=== PATIENT | female | born 1985 | race Caucasian/White ===

== ENCOUNTER 2016-12-17 10:27 | Emergency (ER) | payer OTHER ==
[~2016-12-17] VITALS: Ht 157.5 cm; Wt 81.0 kg
[2016-12-17 10:31] VITALS: Ht 157.5 cm; Wt 81.0 kg
[2016-12-17] MEDS ORDERED: ACETAMINOPHEN 500 MG TAB PO STA (11:02)
[2016-12-17] MEDS ORDERED: PRENAT PO (11:06)
[2016-12-17] MEDS ORDERED: AMOXICILLIN 500 MG CAP PO ONE (11:30)
--- NOTE | 2016-12-17 11:35 | ERD ---
ER Documentation Chief Complaint Date/Time DATE: 12/17/16 TIME: 11:34 Chief Complaint Set from Dr James for eval Sore throat. (he wants to be Called) HPI This is a 31-year-old female who presents to the emergency room for evaluation of a sore throat. The patient states that she has had a sore throat for 2 days duration. The patient denies any trauma to the area, she does state she is 29 weeks and was told to come to the emergency room by her [employer] physician Dr. James. This patient denies any hoarseness in her voice, but does state she thinks she has a fever ROS All systems reviewed and are negative except as per history of present illness. Medications Home Meds Reported Medications Multivit/Min/Fol Ac/Iron/Pren* ( S*) 1 Tab Tab, 1 TAB PO DAILY, TAB 12/17/16 Allergies Allergies: Coded Allergies: No Known Allergy (Unverified , 12/17/16) Physical Exam Vitals Vital Signs Date Time Temp Pulse Resp B/P Pulse Ox O2 Delivery O2 Flow Rate FiO2 12/17/16 11:29 99.6 12/17/16 11:04 117 20 128/89 98 Room Air 12/17/16 10:31 102.0 128 20 127/77 98 Physical Exam INITIAL VITAL SIGNS: Reviewed by me GENERAL: The patient is well developed and appropriate for usual state of health in no apparent distress, tolerating secretions, not posturing HEENT: Pharyngeal erythema with bilateral white exudates, no peritonsillar abscess, no uvular deviation, no pharyngeal edema, pupils equal, round, and reactive to light. EOMI. There is no scleral icterus. NECK: C-spine is soft and supple, there is no meningismus. There is no cervical lymphadenopathy. LUNGS: Clear to auscultation bilaterally. There are no rales, wheezes or rhonchi. HEART: Regular rate and rhythm, no murmurs, clicks, rubs or gallops. ABDOMEN: Gravid abdomen, soft, non-tender, non-distended. There are bowel sounds in all four quadrants. No rebound or guarding. EXTREMITIES: There is no peripheral cyanosis or edema. No focal swelling or erythema. NEUROLOGICAL: The patient moves all four extremities with 5/5 strength. Cranial nerves II - XII are intact. Normal gait. Alert and oriented SKIN: There is no apparent rash or petechiae. HEME/LYMPHATIC: There is no evidence of excessive bruising or lymphedema. PSYCHIATRIC: The patient does not appear anxious or depressed. Results 24 hrs Current Medications Medications (Trade) Dose Ordered Sig/Bailey Route PRN Reason Start Time Stop Time Status Last Admin Dose Admin Acetaminophen (Tylenol Tab) 1,000 mg ONCE STAT PO 12/17/16 11:02 12/17/16 11:06 DC 12/17/16 11:06 Amoxicillin (Amoxicillin) 500 mg ONCE ONCE PO 12/17/16 11:30 12/17/16 11:31 DC 12/17/16 11:16 Procedures/MDM This 31-year-old female presents to the emergency room for evaluation of a sore throat. When I evaluated this patient she was febrile and tachycardic. I did evaluate her oropharynx and noted that she did have white visible exudate on her bilateral tonsils. The patient has no uvular deviation, she is tolerating secretions, there is no sign of peritonsillar abscess at this time. Patient was given 1 g of Tylenol and was given amoxicillin. She is tolerating her p.o. challenge at this time without difficulty. I have contacted her [employer] physician, Dr. James who states this patient is okay for discharge. I will discharge the patient home with a prescription for amoxicillin and fever control instructions. I advised her that if she were to develop any difficulty swallowing or inability to tolerate secretions she needs to return immediately to the emergency room for further evaluation and she verbalized understanding Departure Diagnosis: Primary Impression: Acute streptococcal pharyngitis Condition: Stable MONIK GRUBBS DO Dec 17, 2016 11:35
[2016-12-17] MEDS ORDERED: AMO500 PO (11:38)
[2016-12-17 11:59] VITALS: BP 112/72; PULSE 109; RESP 22; TEMP 98.2
== END 2016-12-17 12:28 | disposition home or self-care (01) ==
LOC: E/R 10:27
DX: J02.0 Streptococcal pharyngitis (principal); R40.2252 Coma scale, best verbal response, oriented, at arrival to emergency department
CPT/HCPCS: Z7610 ×3; 99283

== ENCOUNTER 2017-03-04 12:03 | Inpatient (IN) | payer OTHER ==
[~2017-03-04] VITALS: Ht 154.9 cm; Wt 96.0 kg
[~2017-03-04 12:03] MED LIST: AMO500 PO; PRENAT PO
[2017-03-09] MEDS ORDERED: LACTATED RINGER'S 1,000 ML IV PRN (17:00)
[2017-03-09 17:06] VITALS: Ht 154.9 cm; Wt 96.0 kg
[2017-03-09] MEDS: LACTATED RINGER'S 1,000 ML IV SCH ×3 (17:26→21:09)
[2017-03-09 17:29] LABS: BASOPHILS % 0.3 % (0.0-2.0); EOSINOPHILS % 0.3 % (0.0-7.0); HEMOGLOBIN 12.1 g/dl (12.0-16.0); LYMPHOCYTES # 2.2 10^3/ul (0.8-2.9); LYMPHOCYTES % 25.2 % (15.0-51.0); MEAN CORPUSCULAR HEMOGLOBIN 29.5 pg (29.0-33.0); MEAN CORPUSCULAR HGB CONC 34.6 g/dl (32.0-37.0); MEAN CORPUSCULAR VOLUME 85.4 fl (82.0-101.0); MEAN PLATELET VOLUME 9.9 fl (7.4-10.4); MONOCYTE # 0.5 10^3/ul (0.3-0.9); NEUTROPHILS % 67.7 % (39.0-77.0); PLATELET COUNT 334 10^3/UL (140-415); RED CELL DISTRIBUTION WIDTH 13.8 % (11.5-14.5); WHITE BLOOD COUNT 8.9 10^3/ul (4.8-10.8)
[2017-03-09] MEDS ORDERED: BUTORPHANOL 2 MG INJ IV PRN (17:30)
[2017-03-09] MEDS ORDERED: IBUPROFEN 600 MG TAB PO PRN (17:30)
[2017-03-09] MEDS ORDERED: METHYLERGONOVINE 0.2 MG INJ IM PRN (17:30)
[2017-03-09] MEDS ORDERED: CARBOPROST 250 MCG INJ IM PRN (17:30)
[2017-03-09] MEDS ORDERED: LIDOCAINE 1% (MPF) 30 ML INJ INJ PRN (17:30)
[2017-03-09] MEDS ORDERED: MISOPROSTOL 200 MCG TAB PR PRN (17:30)
[2017-03-09] MEDS ORDERED: OXYTOCIN 30 UNITS/LR 500 ML IV SCH ×3 (17:30)
[2017-03-09] MEDS ORDERED: OXYTOCIN 30 UNITS/LR 500 ML IV PRN (17:30)
[2017-03-09 17:47] LABS: INR 0.91; PARTIAL THROMBOPLASTIN TIME 28.6 Sec (25.0-35.0); PROTIME 12.2 Sec (12.2-14.2)
[2017-03-09 17:58] LABS: ALANINE AMINOTRANSFERASE 25 IU/L (13-69); ALBUMIN 3.7 g/dl (3.3-4.9); ALBUMIN/GLOBULIN RATIO 0.97; ALKALINE PHOSPHATASE 219 IU/L (42-121); ANION GAP 15 (8-16); ASPARTATE AMINO TRANSFERASE 21 IU/L (15-46); BILIRUBIN,INDIRECT 0.1 mg/dl (0-1.1); BILIRUBIN,TOTAL 0.1 mg/dl (0.2-1.3); BLOOD UREA NITROGEN 10 mg/dl (7-20); CALCIUM 9.4 mg/dl (8.4-10.2); CARBON DIOXIDE 21 mmol/L (21-31); CHLORIDE 107 mmol/L (97-110); CREATININE 0.58 mg/dl (0.44-1.00); GLUCOSE 105 mg/dl (70-220); POTASSIUM 4.3 mmol/L (3.5-5.1); SODIUM 139 mmol/L (135-144); TOTAL PROTEIN 7.5 g/dl (6.1-8.1)
--- NOTE | 2017-03-09 19:38 | RADRPT ---
PROCEDURE: US OB. CLINICAL INDICATION: Post dates. Macrosomia.. TECHNIQUE: Multiple sonographic images of the pelvis were obtained. Transabdominal imaging only w as performed. The images were reviewed on a PACS workstation. COMPARISON: None. FINDINGS: Single live intrauterine is identified. Cardiac activity is present with 125 beats per mi nute. There is a vertex presentation and low-lying. Measurements: BPD = 40 weeks 0 days. HC = 40 weeks 0 days. AC = 40 weeks 2 days. FL = 40 weeks 0 days. Estimated gestational age of approximately 40 weeks 1 day. The EFW = 4006 g which is at the 71st percentile. The placenta is fundal. IMPRESSION: Single live intrauterine gestation of approximately 40 weeks 1 day. weight is 8 pounds 13 oun aldair which is at the 71st percentile. RPTAT: HMVK .Christopher Ku MD, Date Time Electronically viewed and signed by .Christopher Ku MD, on 03/09/2017 19:37 .K/
[2017-03-09 19:48] LABS: ADD UMIC YES; UR ASCORBIC ACID NEGATIVE (NEGATIVE); UR BILIRUBIN (Dip) NEGATIVE (NEGATIVE); UR BLOOD (Dip) 3+ mg/dL (NEGATIVE); UR CLARITY CLOUDY (CLEAR); UR COLOR YELLOW (YELLOW); UR GLUCOSE (Dip) NEGATIVE (NEGATIVE); UR KETONES (Dip) NEGATIVE (NEGATIVE); UR LEUKOCYTE ESTERASE (Dip) 2+ Leu/ul (NEGATIVE); UR NITRITE (Dip) NEGATIVE (NEGATIVE); UR RBC 67 /HPF (0-5); UR SPECIFIC GRAVITY (Dip) 1.012 (1.003-1.030); UR SQUAMOUS EPITHELIAL CELL FEW /HPF (FEW); UR TOTAL PROTEIN (Dip) NEGATIVE (NEGATIVE); UR UROBILINOGEN (Dip) NEGATIVE (NEGATIVE)
[2017-03-10] MEDS ORDERED: ONDANSETRON 4 MG INJ ONE (01:22)
[2017-03-10] MEDS ORDERED: CITRIC ACID/NA CITRATE 30 ML CUP ONE (01:22)
[2017-03-10] MEDS ORDERED: LACTATED RINGER'S 1,000 ML IV ONE (01:33)
[2017-03-10] MEDS ORDERED: FENTAnyl 2MCG/ML-ROPIV 0.2% 100 ML ONE (01:39)
[2017-03-10] MEDS ORDERED: DIPHENHYDRAMINE 50 MG INJ IV PRN (02:00)
[2017-03-10] MEDS ORDERED: NALOXONE (0.4 MG/ML) INJ IV PRN (02:00)
[2017-03-10] MEDS ORDERED: TRIMETHOBENZAMIDE 100 MG/ML VIAL IM PRN (02:00)
[2017-03-10] MEDS ORDERED: ONDANSETRON 4 MG INJ IV ONE (02:00)
[2017-03-10] MEDS ORDERED: morphine 2 MG INJ IV PRN (02:00)
[2017-03-10] MEDS ORDERED: NALBUPHINE HCL (10 MG/1 ML) INJ IV PRN (02:00)
[2017-03-10] MEDS ORDERED: FENTAnyl 2MCG/ML-ROPIV 0.2% 100 ML BAG EPI SCH (02:00)
[2017-03-10] MEDS ORDERED: CITRIC ACID/NA CITRATE 30 ML CUP PO ONE (02:00)
[2017-03-10] MEDS ORDERED: ONDANSETRON 4 MG INJ IV PRN (02:00)
[2017-03-10] MEDS: LACTATED RINGER'S 1,000 ML IV SCH (04:32)
[2017-03-10] MEDS ORDERED: CEFAZOLIN 2 GM/50 ML (PMX) 50 ML IVPB ONE (10:30)
[2017-03-10] MEDS ORDERED: LIDOCAINE 2%/EPI 30 ML INJ ONE (11:05)
[2017-03-10] MEDS ORDERED: PHENYLephrine (100 MCG/ML) 5ML SYG ONE ×2 (11:14→11:53)
[2017-03-10] MEDS ORDERED: morphine SULFATE/PF (10 MG/10 ML) INJ ONE (11:33)
[2017-03-10] MEDS ORDERED: FENTAnyl 50 MCG/ML VIAL ONE (11:36)
--- NOTE | 2017-03-10 13:20 | OPR ---
Operative Report Planned Procedure Free Text/Dictation 31 years old female 1 para 0 EDC March 04, 2070 was admitted for induction of labor. had several category 3 heart tracing with decelerations up to 3-4 minutes to failed induction not anticipating timely delivery with the frequency of deceleration plan of discussed with the patient be prepared for urgent section Procedure date Mar 10, 2017 Procedure(s) Primary Performed by: RAMONITA JENKINS MD Assisting provider: CECELIA TEE MD Anesthesiologist: HEIDI KIM Pre-procedure diagnosis Prostate 41 week failed induction category 3 heart tracing Anesthesia Type: epidural Procedure Description Under satisfactory [] anesthesia, the patient was prepped and draped and placed in a supine position, tilted to the left. Pfannenstiel incision was made, carried through the subcutaneous tissue. Bleeders brought under control with electrocautery. Fascia incised to the length of the incision. Rectus muscles from the fascia, divided midline. Peritoneum exposed, entered through a transverse incision. Exploration of abdomen revealed gravid uterus. Normal- appearing tubes and ovaries evidence of labor ,bladder flap was developed. Transverse incision was made in the lower segment of the uterus. Amniotic sac ruptured. [] amniotic fluid noted. Live baby boy was delivered from occiput posterior [] Nasal oropharyngeal suction was performed. The baby was handed to the team for immediate attention. placenta delivered manually intact. Uterine cavity sparkle cleaned with wet sponge and drainage established. Uterus closed in 2 layers using Vicryl No. 1 [] in continuous fashion. Peritoneal cavity irrigated with warm saline. Sponge, needle and instrument count reported to be correct. Abdominal peritoneum closed with [0 chromic cat continuously. Rectus muscle approximated with 0 chromic catgut []. Fascia closed with #1 PDS1, subcutaneous tissue approximated with interrupted 2-0 chromic catgut skin closed with Sorber. Estimated blood loss [600]m. Urine bag contained [200]mL of clear urine patient tolerated procedure well transferred to recovery room in good condition Post-Procedure Findings: Live Baby boy Apgars 9 and 9 Specimen removed: No Complications: None Pt Condition post procedure: stable Disposition: other (Recovery room) Physician Certification I, the undersigned physician, hereby certify that I have discussed the procedure described in this consent form with this patient (or the patient's legal operations support representative), including: * The risk and benefits of the procedure; * Any adverse reactions that may reasonably be expected to occur; * Any alternative efficacious methods of treatment which may be medically viable ; * The potential problems that may occur during recuperation; * Potential for blood transfusion and associated risks/benefits; and * Any research or economic interest I may have regarding this treatment. I further certify that the patient/legally responsible person was encouraged to ask question and that all questions were answered. RAMONITA JENKINS MD Mar 10, 2017 13:18
--- NOTE | 2017-03-10 13:25 | HP ---
Date/Time of Note Date/Time of Note DATE: 03/10/17 TIME: 13:20 OB - History Hx of Present Free Text/Dictation 31 years old female EDC March 04, 2017 admitted for induction of labor during the course of induction developed several occasions of category 3 heart tracing with deceleration up to 3 and 4 minute since not anticipating a timely delivery and failed and the presence of category 3 total heart rate alternative route of delivery by section discussed with the patient she elected to proceed the delivery Chief Complaint: 41 weeks failed induction, grade 3 heart tracing Estimated Due Date: Mar 04, 2017 : 1 Para: 0 Care: Good Care Ultrasounds: Normal mid trimester US Obstetrical Complications: None Medical Complications: None Past Family/Social History * Past Medical, Surgical, Family and Obstetric Histories reviewed from chart. Rubella: immune RPR/VDRL: Negative GBS Status: Negative HBsAG: Negative OB Admission Exam Physical Exam HEENT: WNL Heart: Rhythm Normal Lungs: Clear, Equal Abdomen: WNL Extremities: Normal Cervical Dilatation: 9cm Effacement: 100% Station: -1 Membranes: Ruptured Amniotic Fluid: Clear Heart Rate: 130's Decelerations: Variable Decelerations Contractions on Admission: < 5 Minutes Apart Intensity: Firm Last 72 hours Lab Results CBC & BMP 03/09/17 17:00 Liver Function Test 03/09/17 17:00 Alanine Aminotransferase (ALT/SGPT) 25 Albumin 3.7 Alkaline Phosphatase 219 H Aspartate Amino Transf (AST/SGOT) 21 Direct Bilirubin 0.00 Total Protein 7.5 RAMONITA JENKINS MD Mar 10, 2017 13:25
[2017-03-10] MEDS: KETOROLAC 30 MG INJ IV PRN ×2 (13:57→21:58)
[2017-03-10 16:00] VITALS: BP 121/53; PULSE 102; RESP 17
[2017-03-10] MEDS ORDERED: MISOPROSTOL 200 MCG TAB PR PRN (16:00)
[2017-03-10] MEDS ORDERED: CEFAZOLIN 1 GM/50 ML (PMX) 50 ML IVPB SCH (16:00)
[2017-03-10] MEDS ORDERED: CARBOPROST 250 MCG INJ IM PRN (16:00)
[2017-03-10] MEDS ORDERED: HYDROCODONE/APAP (5/325) TAB PO PRN (16:00)
[2017-03-10] MEDS ORDERED: METHYLERGONOVINE 0.2 MG INJ IM PRN (16:00)
[2017-03-10] MEDS ORDERED: OXYCODONE/ACETAMINOPHEN (5/325) TAB PO PRN (16:00)
[2017-03-10] MEDS ORDERED: LANOLIN 7 GM TUBE TOP PRN (16:00)
[2017-03-10] MEDS ORDERED: OXYTOCIN 30 UNITS/LR 500 ML IV PRN (16:00)
[2017-03-10] MEDS: OXYTOCIN 30 UNITS/LR 500 ML IV SCH ×2 (17:11→21:53)
[2017-03-10 20:00] VITALS: BP 107/53; PULSE 99; RESP 18
[2017-03-11] VITALS: BP 129/60; PULSE 88; RESP 18
[2017-03-11] MEDS: LACTATED RINGER'S 1,000 ML IV SCH ×2 (01:53→09:43)
[2017-03-11 04:00] VITALS: BP 110/59; PULSE 96; RESP 18
[2017-03-11] MEDS: KETOROLAC 30 MG INJ IV PRN ×2 (05:28→11:18)
[2017-03-11 08:00] VITALS: BP 120/58; PULSE 94; RESP 16
--- NOTE | 2017-03-11 08:45 | CONS ---
Date/Time of Note Date/Time of Note DATE: 03/11/17 TIME: 08:43 Consultation Date/Type/Reason Admit Date/Time Mar 09, 2017 at 16:29 Initial Consult Date 03/10/17 Type of Consultation: Anesthesiology Reason for Consultation Follow up 24 HR Interval Summary Free Text/Dictation Pt seen and examined at bedside is POD#1 for primary emergency c/s for Cat 3 tracing. Pt received Duramorph in her epidural for post op pain control. She states she is doing well with minimal pain. No N/V/D/C/BHAKTA/Numbness in extremities. Will follow. Constitutional: improved, no complaints Exam/Review of Systems Vital Signs Vitals Vital Signs Date Time Temp Pulse Resp B/P Pulse Ox O2 Delivery O2 Flow Rate FiO2 03/11/17 04:00 98.2 96 18 110/59 Room Air Intake and Output 03/10/17 03/10/17 03/11/17 14:59 22:59 06:59 Intake Total 1634 ml 725 ml 1125 ml Output Total 1800 ml 700 ml 1350 ml Balance -166 ml 25 ml -225 ml Results Result Diagram: 03/09/17 1700 03/09/17 1700 Medications Medications Current Medications Naloxone HCl (Narcan) 0.1 mg Q2M PRN IV FOR RESP RATE 8 OR LESS; Start 03/10/17 at 02:00; Stop 03/11/17 at 11:33 Ketorolac Tromethamine (Toradol) 30 mg Q6H PRN IV PAIN Last administered on 03/11t 05:28; Admin Dose 30 MG; Start 03/10/17 at 02:00; Stop 03/11/17 at 11:33 Morphine Sulfate (morphine) 2 mg Q3H PRN IV PAIN LEVEL 1-5; Start 03/10/17 at 02 :00; Stop 03/11/17 at 11:33 Diphenhydramine HCl (Benadryl) 25 mg Q6H PRN IV ITCHING; Start 03/10/17 at 02:00 ; Stop 03/11/17 at 11:33 Nalbuphine HCl (Nubain) 5 mg ONCE PRN IV ITCHING; Start 03/10/17 at 02:00; Stop 03/11/17 at 11:33 Ondansetron HCl (Zofran Inj) 4 mg Q6H PRN IV NAUSEA AND/OR VOMITING; Start 03/10 at 02:00; Stop 03/11/17 at 11:33 Trimethobenzamide HCl (Tigan) 200 mg Q6H PRN IM NAUSEA AND/OR VOMITING; Start 03/10/17 at 02:00; Stop 03/11/17 at 11:33 Acetaminophen/ Hydrocodone Bitart ([place] (5/325)) 1 tab Q4H PRN PO PAIN LEVEL 4 -6; Start 03/10/17 at 16:00 Acetaminophen/ Hydrocodone Bitart ([place] (5/325)) 2 tab Q4H PRN PO PAIN LEVEL 7 -10; Start 03/10/17 at 16:00 Oxycodone/ Acetaminophen (Percocet (5/ 325)) 1 tab Q4H PRN PO PAIN LEVEL 4-6; Start 03/10/17 at 16:00 Oxycodone/ Acetaminophen (Percocet (5/ 325)) 2 tab Q4H PRN PO PAIN LEVEL 7-10; Start 03/10/17 at 16:00 Ibuprofen (Motrin) 600 mg Q6 PO ; Start 03/11/17 at 12:00 Simethicone (Mylicon) 160 mg Q8H PRN PO DISTENSION/GAS/BLOATING; Start 03/10/17 at 16:00 Senna/Docusate Sodium (Senokot-S) 1 tab BID PO ; Start 03/11/17 at 09:00 Diphtheria/ Tetanus/Acell Pertussis 0.5 ml 0.5 ml ONCE ONCE IM* ; Start 03/13/17 at 09:00; Stop 03/13/17 at 09:01 Oxytocin/Lactated Ringer's 500 ml @ 0 mls/hr ONCE PRN IV For Hemorrhage Management; Start 03/10/17 at 16:00 Methylergonovine Maleate (Methergine) 0.2 mg ONCE PRN IM VAGINAL BLEEDING; Start 03/10/17 at 16:00 Carboprost Tromethamine (Hemabate) 250 mcg ONCE PRN IM VAGINAL BLEEDING; Start 03/10/17 at 16:00 Misoprostol 1000 mcg 1,[address] VAGINAL BLEEDING; Start 03/10/17 at 16 :00 Lactated Ringer's (Lr) 1,000 ml @ 125 mls/hr Q8H IV Last administered on t 01:53; Admin Dose 125 MLS/HR; Start 03/11/17 at 00:00; Stop 03/11/17 at 12:00 HEIDI KIM Mar 11, 2017 08:45
[2017-03-11 09:11] LABS: BASOPHILS % 0.2 % (0.0-2.0); EOSINOPHILS % 0.2 % (0.0-7.0); HEMATOCRIT 26.9 % (37.0-47.0); HEMOGLOBIN 8.9 g/dl (12.0-16.0); LYMPHOCYTES # 1.9 10^3/ul (0.8-2.9); MEAN CORPUSCULAR HEMOGLOBIN 28.7 pg (29.0-33.0); MEAN CORPUSCULAR HGB CONC 33.1 g/dl (32.0-37.0); MEAN CORPUSCULAR VOLUME 86.8 fl (82.0-101.0); MEAN PLATELET VOLUME 9.8 fl (7.4-10.4); MONOCYTE # 0.5 10^3/ul (0.3-0.9); MONOCYTES % 4.6 % (0.0-11.0); NEUTROPHILS % 75.7 % (39.0-77.0); PLATELET COUNT 262 10^3/UL (140-415); RED CELL DISTRIBUTION WIDTH 14.4 % (11.5-14.5); WHITE BLOOD COUNT 9.9 10^3/ul (4.8-10.8)
[2017-03-11] MEDS: SENNA/DOCUSATE NA (8.6MG/50MG) TAB PO SCH ×2 (09:42→20:39)
--- NOTE | 2017-03-11 10:32 | PN ---
Date/Time of Note Date/Time of Note DATE: 03/11/17 TIME: 10:30 OB Subjective Subjective Subjective March 11, 2017 Post day 1 Doing Well Afebrile Ambulatory Chest Clear Breasts are soft , Nipples are intact Abdomen is soft Fundus is firm Moderate amount of lochia Incision is clean ,No evidence of infection No calf tenderness No ankle edema Laboratory Tests Test 03/11/17 08:46 White Blood Count 9.910^3/ul Red Blood Count 3.1010^6/ul Hemoglobin 8.9g/dl Hematocrit 26.9% Mean Corpuscular Volume 86.8fl Mean Corpuscular Hemoglobin 28.7pg Mean Corpuscular Hemoglobin Concent 33.1g/dl Red Cell Distribution Width 14.4% Platelet Count 99768^3/UL Mean Platelet Volume 9.8fl Neutrophils % 75.7% Lymphocytes % 19.0% Monocytes % 4.6% Eosinophils % 0.2% Basophils % 0.2% Nucleated Red Blood Cells % 0.0/100WBC Neutrophils # (Manual) 7.510^3/ul Lymphocytes # 1.910^3/ul Monocytes # 0.510^3/ul Eosinophils # 0.010^3/ul Basophils # 0.010^3/ul Nucleated Red Blood Cells # 0.010^3/ul Current Medications Medications (Trade) Dose Ordered Sig/Bailey Route PRN Reason Start Time Stop Time Status Last Admin Dose Admin Lactated Ringer's (Lr) 1,000 ml @ 125 mls/hr Q8H IV 03/09/17 17:07 03/10/17 16:04 DC 03/10/17 04:32 Butorphanol Tartrate (Stadol) 2 mg Q2H PRN IV PAIN 03/09/17 17:30 03/10/17 16:04 DC 03/09/17 23:27 Lidocaine 30 ml 30 ml ONCE PRN INJ EPISIOTOMY/TEARING 03/09/17 17:30 03/10/17 16:04 DC Oxytocin/Lactated Ringer's 500 ml @ 125 mls/hr ONCE -MAY REPEAT X1 IV 03/09/17 17:30 03/10/17 16:04 DC 03/10/17 12:54 Oxytocin/Lactated Ringer's 500 ml @ 125 mls/hr ONCE IV 03/09/17 17:30 03/10/17 16:04 DC 03/10/17 13:02 Ibuprofen 600 mg 600 mg ONCE PRN PO Mild Pain (Pain Score 1-3) 03/09/17 17:30 03/10/17 16:04 DC Lactated Ringer's 1,000 ml @ 2,000 mls/hr Q30M PRN IV PRE-EPIDURAL BOLUS 03/09/17 17:00 03/10/17 16:04 DC 03/10/17 01:26 Oxytocin/Lactated Ringer's 500 ml @ 0 mls/hr ONCE PRN IV For Hemorrhage Management 03/09/17 17:30 03/10/17 16:04 DC Methylergonovine Maleate (Methergine) 0.2 mg ONCE PRN IM VAGINAL BLEEDING 03/09/17 17:30 03/10/17 16:04 DC Carboprost Tromethamine (Hemabate) 250 mcg ONCE PRN IM VAGINAL BLEEDING 03/09/17 17:30 03/10/17 16:04 DC Misoprostol 1000 mcg 1,000 mcg ONCE PRN [place] VAGINAL BLEEDING 03/09/17 17:30 03/10/17 16:04 DC Oxytocin/Lactated Ringer's 500 ml @ 0 mls/hr TITRATE IV 03/09/17 17:30 03/10/17 16:04 DC 03/09/17 18:10 Citric Acid/ Sodium Citrate (Bicitra) 30 ml STK-MED ONCE .ROUTE 03/10/17 01:22 03/10/17 01:23 DC Ondansetron HCl (Zofran Inj) 4 mg STK-MED ONCE .ROUTE 03/10/17 01:22 03/10/17 01:23 DC Naloxone HCl (Narcan) 0.1 mg Q2M PRN IV FOR RESP RATE 8 OR LESS 03/10/17 02:00 03/11/17 11:33 Ketorolac Tromethamine (Toradol) 30 mg Q6H PRN IV PAIN 03/10/17 02:00 03/11/17 11:33 03/11/17 05:28 Morphine Sulfate (morphine) 2 mg Q3H PRN IV PAIN LEVEL 1-5 03/10/17 02:00 03/11/17 11:33 Diphenhydramine HCl (Benadryl) 25 mg Q6H PRN IV ITCHING 03/10/17 02:00 03/11/17 11:33 Nalbuphine HCl (Nubain) 5 mg ONCE PRN IV ITCHING 03/10/17 02:00 03/11/17 11:33 Ondansetron HCl (Zofran Inj) 4 mg Q6H PRN IV NAUSEA AND/OR VOMITING 03/10/17 02:00 03/11/17 11:33 Trimethobenzamide HCl (Tigan) 200 mg Q6H PRN IM NAUSEA AND/OR VOMITING 03/10/17 02:00 03/11/17 11:33 Fentanyl/ Ropivacaine 100 ml 100 ml EPIDURAL INFUSION EPI 03/10/17 02:00 03/10/17 16:04 DC 03/10/17 09:38 Lactated Ringer's (Lr) 1,000 ml @ 1,000 mls/hr Q1H ONCE IV 03/10/17 01:33 03/10/17 02:32 DC 03/10/17 10:40 Ondansetron HCl (Zofran Inj) 4 mg pre-procedure ONCE IV 03/10/17 02:00 03/10/17 02:01 DC Citric Acid/ Sodium Citrate 30 ml 30 ml PRE-OP ONCE PO 03/10/17 02:00 03/10/17 02:01 DC Fentanyl/ Ropivacaine 100 ml @ ud STK-MED ONCE .ROUTE 03/10/17 01:39 03/10/17 01:40 DC Cefazolin Sodium/ Dextrose (Ancef 2 Gm/50 ml (Pmx)) 50 ml @ 100 mls/hr ONCE ONCE IVPB 03/10/17 10:30 03/10/17 10:59 DC Lidocaine/ Epinephrine (Xylocaine 2%/ Epi) 30 ml STK-MED ONCE .ROUTE 03/10/17 11:05 03/10/17 11:06 DC Phenylephrine HCl ([place]-Synephrine Inj Syg) 500 mcg STK-MED ONCE .ROUTE 03/10/17 11:14 03/10/17 11:15 DC Morphine Sulfate (Duramorph) 10 mg STK-MED ONCE .ROUTE 03/10/17 11:33 03/10/17 11:34 DC Fentanyl (Sublimaze) 100 mcg STK-MED ONCE .ROUTE 03/10/17 11:36 03/10/17 11:37 DC Phenylephrine HCl ([place]-Synephrine Inj Syg) 500 mcg STK-MED ONCE .ROUTE 03/10/17 11:53 03/10/17 11:54 DC Acetaminophen/ Hydrocodone Bitart ([place] (5/325)) 1 tab Q4H PRN PO PAIN LEVEL 4-6 03/10/17 16:00 Acetaminophen/ Hydrocodone Bitart ([place] (5/325)) 2 tab Q4H PRN PO PAIN LEVEL 7-10 03/10/17 16:00 Oxycodone/ Acetaminophen (Percocet (5/ 325)) 1 tab Q4H PRN PO PAIN LEVEL 4-6 03/10/17 16:00 Oxycodone/ Acetaminophen (Percocet (5/ 325)) 2 tab Q4H PRN PO PAIN LEVEL 7-10 03/10/17 16:00 Ibuprofen (Motrin) 600 mg Q6 PO 03/11/17 12:00 Simethicone (Mylicon) 160 mg Q8H PRN PO DISTENSION/GAS/BLOATING 03/10/17 16:00 Senna/Docusate Sodium (Senokot-S) 1 tab BID PO 03/11/17 09:00 03/11/17 09:42 Lanolin (Hgg-E-Lxcrfr) 1 applic BEDSIDE MEDICATION PRN TOP BEDSIDE FOR DALE TO NIPPLES 03/10/17 16:00 Diphtheria/ Tetanus/Acell Pertussis 0.5 ml 0.5 ml ONCE ONCE IM* 03/13/17 09:00 03/13/17 09:01 Oxytocin/Lactated Ringer's 500 ml @ 0 mls/hr ONCE PRN IV For Hemorrhage Management 03/10/17 16:00 Methylergonovine Maleate (Methergine) 0.2 mg ONCE PRN IM VAGINAL BLEEDING 03/10/17 16:00 Carboprost Tromethamine (Hemabate) 250 mcg ONCE PRN IM VAGINAL BLEEDING 03/10/17 16:00 Misoprostol 1000 mcg 1,000 mcg ONCE PRN [place] VAGINAL BLEEDING 03/10/17 16:00 Cefazolin Sodium 50 ml @ 100 mls/hr ONCE IVPB 03/10/17 16:00 03/10/17 16:29 DC 03/10/17 17:10 Oxytocin/Lactated Ringer's 500 ml @ 125 mls/hr Q4H IV 03/10/17 15:57 03/11/17 07:53 DC 03/10/17 21:53 Lactated Ringer's (Lr) 1,000 ml @ 125 mls/hr Q8H IV 03/11/17 00:00 03/11/17 12:00 03/11/17 09:43 New born is doing well, Breast feeding JESSICA FERRERA MD Mar 11, 2017 10:32
--- NOTE | 2017-03-11 10:37 | PN ---
Date/Time of Note Date/Time of Note DATE: 03/11/17 TIME: 10:36 OB Subjective Subjective Subjective March 11, 2017 Post C section day 2 Doing Well Afebrile Ambulatory Chest Clear Breasts are soft , Nipples are intact Abdomen is soft Fundus is firm Moderate amount of lochia Incision is clean ,No evidence of infection No calf tenderness No ankle edema Laboratory Tests Test 03/11/17 08:46 White Blood Count 9.910^3/ul Red Blood Count 3.1010^6/ul Hemoglobin 8.9g/dl Hematocrit 26.9% Mean Corpuscular Volume 86.8fl Mean Corpuscular Hemoglobin 28.7pg Mean Corpuscular Hemoglobin Concent 33.1g/dl Red Cell Distribution Width 14.4% Platelet Count 68921^3/UL Mean Platelet Volume 9.8fl Neutrophils % 75.7% Lymphocytes % 19.0% Monocytes % 4.6% Eosinophils % 0.2% Basophils % 0.2% Nucleated Red Blood Cells % 0.0/100WBC Neutrophils # (Manual) 7.510^3/ul Lymphocytes # 1.910^3/ul Monocytes # 0.510^3/ul Eosinophils # 0.010^3/ul Basophils # 0.010^3/ul Nucleated Red Blood Cells # 0.010^3/ul Current Medications Medications (Trade) Dose Ordered Sig/Bailey Route PRN Reason Start Time Stop Time Status Last Admin Dose Admin Lactated Ringer's (Lr) 1,000 ml @ 125 mls/hr Q8H IV 03/09/17 17:07 03/10/17 16:04 DC 03/10/17 04:32 Butorphanol Tartrate (Stadol) 2 mg Q2H PRN IV PAIN 03/09/17 17:30 03/10/17 16:04 DC 03/09/17 23:27 Lidocaine 30 ml 30 ml ONCE PRN INJ EPISIOTOMY/TEARING 03/09/17 17:30 03/10/17 16:04 DC Oxytocin/Lactated Ringer's 500 ml @ 125 mls/hr ONCE -MAY REPEAT X1 IV 03/09/17 17:30 03/10/17 16:04 DC 03/10/17 12:54 Oxytocin/Lactated Ringer's 500 ml @ 125 mls/hr ONCE IV 03/09/17 17:30 03/10/17 16:04 DC 03/10/17 13:02 Ibuprofen 600 mg 600 mg ONCE PRN PO Mild Pain (Pain Score 1-3) 03/09/17 17:30 03/10/17 16:04 DC Lactated Ringer's 1,000 ml @ 2,000 mls/hr Q30M PRN IV PRE-EPIDURAL BOLUS 03/09/17 17:00 03/10/17 16:04 DC 03/10/17 01:26 Oxytocin/Lactated Ringer's 500 ml @ 0 mls/hr ONCE PRN IV For Hemorrhage Management 03/09/17 17:30 03/10/17 16:04 DC Methylergonovine Maleate (Methergine) 0.2 mg ONCE PRN IM VAGINAL BLEEDING 03/09/17 17:30 03/10/17 16:04 DC Carboprost Tromethamine (Hemabate) 250 mcg ONCE PRN IM VAGINAL BLEEDING 03/09/17 17:30 03/10/17 16:04 DC Misoprostol 1000 mcg 1,000 mcg ONCE PRN [place] VAGINAL BLEEDING 03/09/17 17:30 03/10/17 16:04 DC Oxytocin/Lactated Ringer's 500 ml @ 0 mls/hr TITRATE IV 03/09/17 17:30 03/10/17 16:04 DC 03/09/17 18:10 Citric Acid/ Sodium Citrate (Bicitra) 30 ml STK-MED ONCE .ROUTE 03/10/17 01:22 03/10/17 01:23 DC Ondansetron HCl (Zofran Inj) 4 mg STK-MED ONCE .ROUTE 03/10/17 01:22 03/10/17 01:23 DC Naloxone HCl (Narcan) 0.1 mg Q2M PRN IV FOR RESP RATE 8 OR LESS 03/10/17 02:00 03/11/17 11:33 Ketorolac Tromethamine (Toradol) 30 mg Q6H PRN IV PAIN 03/10/17 02:00 03/11/17 11:33 03/11/17 05:28 Morphine Sulfate (morphine) 2 mg Q3H PRN IV PAIN LEVEL 1-5 03/10/17 02:00 03/11/17 11:33 Diphenhydramine HCl (Benadryl) 25 mg Q6H PRN IV ITCHING 03/10/17 02:00 03/11/17 11:33 Nalbuphine HCl (Nubain) 5 mg ONCE PRN IV ITCHING 03/10/17 02:00 03/11/17 11:33 Ondansetron HCl (Zofran Inj) 4 mg Q6H PRN IV NAUSEA AND/OR VOMITING 03/10/17 02:00 03/11/17 11:33 Trimethobenzamide HCl (Tigan) 200 mg Q6H PRN IM NAUSEA AND/OR VOMITING 03/10/17 02:00 03/11/17 11:33 Fentanyl/ Ropivacaine 100 ml 100 ml EPIDURAL INFUSION EPI 03/10/17 02:00 03/10/17 16:04 DC 03/10/17 09:38 Lactated Ringer's (Lr) 1,000 ml @ 1,000 mls/hr Q1H ONCE IV 03/10/17 01:33 03/10/17 02:32 DC 03/10/17 10:40 Ondansetron HCl (Zofran Inj) 4 mg pre-procedure ONCE IV 03/10/17 02:00 03/10/17 02:01 DC Citric Acid/ Sodium Citrate 30 ml 30 ml PRE-OP ONCE PO 03/10/17 02:00 03/10/17 02:01 DC Fentanyl/ Ropivacaine 100 ml @ ud STK-MED ONCE .ROUTE 03/10/17 01:39 03/10/17 01:40 DC Cefazolin Sodium/ Dextrose (Ancef 2 Gm/50 ml (Pmx)) 50 ml @ 100 mls/hr ONCE ONCE IVPB 03/10/17 10:30 03/10/17 10:59 DC Lidocaine/ Epinephrine (Xylocaine 2%/ Epi) 30 ml STK-MED ONCE .ROUTE 03/10/17 11:05 03/10/17 11:06 DC Phenylephrine HCl (Haroon-Synephrine Inj Syg) 500 mcg STK-MED ONCE .ROUTE 03/10/17 11:14 03/10/17 11:15 DC Morphine Sulfate (Duramorph) 10 mg STK-MED ONCE .ROUTE 03/10/17 11:33 03/10/17 11:34 DC Fentanyl (Sublimaze) 100 mcg STK-MED ONCE .ROUTE 03/10/17 11:36 03/10/17 11:37 DC Phenylephrine HCl (Haroon-Synephrine Inj Syg) 500 mcg STK-MED ONCE .ROUTE 03/10/17 11:53 03/10/17 11:54 DC Acetaminophen/ Hydrocodone Bitart (Modale (5/325)) 1 tab Q4H PRN PO PAIN LEVEL 4-6 03/10/17 16:00 Acetaminophen/ Hydrocodone Bitart (Modale (5/325)) 2 tab Q4H PRN PO PAIN LEVEL 7-10 03/10/17 16:00 Oxycodone/ Acetaminophen (Percocet (5/ 325)) 1 tab Q4H PRN PO PAIN LEVEL 4-6 03/10/17 16:00 Oxycodone/ Acetaminophen (Percocet (5/ 325)) 2 tab Q4H PRN PO PAIN LEVEL 7-10 03/10/17 16:00 Ibuprofen (Motrin) 600 mg Q6 PO 03/11/17 12:00 Simethicone (Mylicon) 160 mg Q8H PRN PO DISTENSION/GAS/BLOATING 03/10/17 16:00 Senna/Docusate Sodium (Senokot-S) 1 tab BID PO 03/11/17 09:00 03/11/17 09:42 Lanolin (Int-S-Zmptbj) 1 applic BEDSIDE MEDICATION PRN TOP BEDSIDE FOR DALE TO NIPPLES 03/10/17 16:00 Diphtheria/ Tetanus/Acell Pertussis 0.5 ml 0.5 ml ONCE ONCE IM* 03/13/17 09:00 03/13/17 09:01 Oxytocin/Lactated Ringer's 500 ml @ 0 mls/hr ONCE PRN IV For Hemorrhage Management 03/10/17 16:00 Methylergonovine Maleate (Methergine) 0.2 mg ONCE PRN IM VAGINAL BLEEDING 03/10/17 16:00 Carboprost Tromethamine (Hemabate) 250 mcg ONCE PRN IM VAGINAL BLEEDING 03/10/17 16:00 Misoprostol 1000 mcg 1,000 mcg ONCE PRN [place] VAGINAL BLEEDING 03/10/17 16:00 Cefazolin Sodium 50 ml @ 100 mls/hr ONCE IVPB 03/10/17 16:00 03/10/17 16:29 DC 03/10/17 17:10 Oxytocin/Lactated Ringer's 500 ml @ 125 mls/hr Q4H IV 03/10/17 15:57 03/11/17 07:53 DC 03/10/17 21:53 Lactated Ringer's (Lr) 1,000 ml @ 125 mls/hr Q8H IV 03/11/17 00:00 03/11/17 12:00 03/11/17 09:43 New born is doing well, Breast feeding JESSICA FERRERA MD Mar 11, 2017 10:37
[2017-03-11] MEDS: IBUPROFEN 600 MG TAB PO SCH ×3 (12:00→23:30)
[2017-03-11 12:15] VITALS: BP 108/59; PULSE 79; RESP 18
[2017-03-11 16:20] VITALS: BP 120/73; PULSE 79; RESP 18
[2017-03-11] MEDS: OXYCODONE/ACETAMINOPHEN (5/325) TAB PO PRN (16:21)
[2017-03-11 20:00] VITALS: BP 115/68; PULSE 80; RESP 20
[2017-03-12] MEDS: OXYCODONE/ACETAMINOPHEN (5/325) TAB PO PRN (02:41)
[2017-03-12 04:00] VITALS: BP 112/56; PULSE 79; RESP 18
[2017-03-12] MEDS: IBUPROFEN 600 MG TAB PO SCH ×4 (05:47→23:34)
[2017-03-12 08:00] VITALS: BP_SYST 102; BP_SYST 127; BP_DIAS 55; BP_DIAS 76; PULSE 67; PULSE 72; RESP 18
[2017-03-12] MEDS: SENNA/DOCUSATE NA (8.6MG/50MG) TAB PO SCH ×2 (09:00→20:36)
[2017-03-12] MEDS: HYDROCODONE/APAP (5/325) TAB PO PRN ×2 (15:27→19:54)
[2017-03-12 16:00] VITALS: BP 128/79; PULSE 84; RESP 18
--- NOTE | 2017-03-12 16:24 | PN ---
Date/Time of Note Date/Time of Note DATE: 03/12/17 TIME: 16:22 OB Subjective Subjective Subjective Post day 2 Vital signs are stable Abdomen soft Good bowel sounds, had loose BM Extremity normal Incision healing well Plan of possible a.m. discharge discussed RAMONITA JENKINS MD Mar 12, 2017 16:24
[2017-03-12 20:00] VITALS: BP 124/81; PULSE 75; RESP 20
[2017-03-13 04:00] VITALS: BP 111/69; PULSE 89; RESP 18
[2017-03-13] MEDS: IBUPROFEN 600 MG TAB PO SCH ×2 (05:52→12:34)
[2017-03-13 09:00] VITALS: BP 102/62; PULSE 68; RESP 18
[2017-03-13] MEDS ORDERED: DIPHTH/TET/ACEL PERTUSS (ADULT) 0.5 ML VIAL IM* ONE (09:00)
[2017-03-13] MEDS: SENNA/DOCUSATE NA (8.6MG/50MG) TAB PO SCH (09:00)
[2017-03-13] MEDS ORDERED: MEASLES,MUMPS,RUBELLA VACCINE INJ SC* ONE (10:30)
--- NOTE | 2017-03-13 12:25 | DS ---
Date/Time of Note Date/Time of Note DATE: 03/13/17 TIME: 12:22 Discharge Summary Admission/Discharge Info Admit Date/Time Mar 09, 2017 at 16:29 Discharge Date/Time March 13, 2017 at 12 noon Discharge Diagnosis Post primary date 3 Patient Condition: Good Procedures Primary Hx of Present Illness Term in labor category 3 heart tracing Hospital Course Satisfactory uneventful Home Meds Reported Medications Multivit/Min/Fol Ac/Iron/Pren* ( S*) 1 Tab Tab, 1 TAB PO DAILY, TAB 12/17/16 Follow-up Plan Post instructions given recommended patient to make appointment to be seen at the clinic in 1 week Primary Care Provider Not On Staff Doctor Time spent on discharge: < 30 minutes RAMONITA JENKINS MD Mar 13, 2017 12:24
== END 2017-03-13 15:30 | disposition home or self-care (01) | DRG 765 ==
LOC: EDSTATUS 16:25 → L-D 03-09 16:29 → PP1 03-10 15:55
PROVIDERS: ADMIT Obstetrics & Gynecology; ATTEND Obstetrics & Gynecology
PROC: 3E033VJ Introduction of Other Hormone into Peripheral Vein, Percutaneous Approach (ICD-10-PCS; 2017-03-10)
PROC: 10D00Z1 Extraction of Products of Conception, Low, Open Approach (ICD-10-PCS; principal; 2017-03-10 12:30)
DX: O48.0 Post-term pregnancy (principal); Z68.41 Body mass index [BMI] 40.0-44.9, adult; Z3A.41 41 weeks gestation of pregnancy; O76 Abnormality in fetal heart rate and rhythm complicating labor and delivery; O61.0 Failed medical induction of labor; O99.214 Obesity complicating childbirth; E66.01 Morbid (severe) obesity due to excess calories; Z37.0 Single live birth
CPT/HCPCS: 62319; 76815; 80053; 81001; 82977; 85025; 85610; 85730; 86592; 86900; 86901; 87340; 90715; 99464; J0595; J0690; J1885; J2274; J2370; J2405; J2590; J3010; J7120